=== PATIENT | female | born 1970 | race Caucasian/White ===

== ENCOUNTER 2020-05-31 08:54 | Outpatient (CLI) | payer BC, SELFPAY ==
--- NOTE | 2020-05-31 11:15 | USCV_ITS ---
Jenny Iverson Age: 50 Gender: F : 1970 Exam Date: 05/31/2020 11:22 Ordering Phys: Eladia Han-C [employer]OR[employer] MEDICINE COORDINATOR Technologist: Sury Canales [place] [facility] [place] CHEST PAIN HISTORY: Diameter (cm) AP x Transverse x Length Velocity (cm/s) Waveform Prox Aorta: 1.69 x 2.20 x 101.20 Mid Aorta: 1.38 x 1.64 x 101.20 Distal Aorta: 1.24 x 1.86 x 102.60 Right Iliac Prox: 0.62 x 1.17 x 104.00 Left Iliac Prox: 1.05 x 1.65 x 98.40 Stent Prox Landing x x Aneurysmal Sac Max x x Lt Lat Sac Dim Rt Lat Sac Dim Stent Dist Landing x x Right Iliac Stent x x Left Iliac Stent x x Right Renal Art Left Renal Art FINDINGS: CONCLUSIONS No evidence of abdominal aortic or bilateral iliac aneurysm. Giuseppe Krishna MD (Electronically Signed) Final Date: 31 May 2020 18:19 S
--- NOTE | 2020-05-31 11:15 | US_ITS ---
WS: [id number] Exam: US abdomen complete* [id number] Date/Time of Exam: 05/31/2020 11:15 AM Reason For Exam: R10.84 - Generalized abdominal pain Exam: US abdomen complete* [id number] The liver and spleen are unremarkable. The abdominal aorta shows no evidence of the aneurysm. The aor ta measures 1.5 cm at maximal diameter. Normal-appearing gallbladder. The common bile duct is not dil ated and measures 4.2 mm at greatest diameter. The IVC is patent. The spleen measures 11.7 cm at maxi mal dimension. The pancreas is unremarkable. The kidneys are of normal size, shape and location. No s olid or cystic renal mass. No renal obstruction. The right kidney measures 11.3 x 4.4 x 5.4 cm. The l eft kidney measures 11.2 x 5.2 x 5 cm. No free fluid or mass in the abdomen. US/US abdomen complete* [id number] IMPRESSION: 1. Unremarkable abdominal sonogram.
== END 2020-05-31 08:55 | disposition home or self-care (01) ==
PROVIDERS: PCP Nurse Practitioner Family; Visit Provider Nurse Practitioner Family
DX: R07.89 Other chest pain (principal); R10.84 Generalized abdominal pain
CPT/HCPCS: 76700; 76706

== ENCOUNTER → 2021-07-22 15:19 | Outpatient (BNVA) | payer BC, SELFPAY | PROVIDERS: PCP Nurse Practitioner Family; Visit Provider Nurse Practitioner Family | DX: I10 Essential (primary) hypertension (principal); R53.83 Other fatigue; R51.9 Headache, unspecified; G51.31 Clonic hemifacial spasm, right | CPT/HCPCS: 80053; 85025 ==

== ENCOUNTER → 2021-08-16 10:32 | Outpatient (BNVA) | payer BC, SELFPAY | PROVIDERS: PCP Nurse Practitioner Family; Visit Provider Nurse Practitioner Family | DX: R73.09 Other abnormal glucose (principal); G24.5 Blepharospasm; R20.0 Anesthesia of skin; R20.2 Paresthesia of skin | CPT/HCPCS: 82607; 83036 ==

== ENCOUNTER → 2022-07-16 10:01 | Outpatient (BNVA) | payer BC, SELFPAY | PROVIDERS: PCP Nurse Practitioner Family; Visit Provider Nurse Practitioner Family | DX: R53.83 Other fatigue (principal); I10 Essential (primary) hypertension; E78.5 Hyperlipidemia, unspecified; Z78.0 Asymptomatic menopausal state | CPT/HCPCS: 80053; 80061; 84439; 84443; 84481; 85025 ==

== ENCOUNTER → 2023-07-31 08:47 | Outpatient (BNVA) | payer BC, SELFPAY | PROVIDERS: PCP Nurse Practitioner Family; Visit Provider Nurse Practitioner Family | DX: I10 Essential (primary) hypertension (principal); E78.5 Hyperlipidemia, unspecified | CPT/HCPCS: 80053; 80061 ==

== ENCOUNTER → 2025-01-13 08:35 | Outpatient (BNVA) | payer BC, SELFPAY | PROVIDERS: PCP Nurse Practitioner Family; Visit Provider Nurse Practitioner Family | DX: E78.2 Mixed hyperlipidemia (principal); I10 Essential (primary) hypertension | CPT/HCPCS: 80053; 80061 ==